=== PATIENT | female | born 1970 | race Caucasian/White ===

== ENCOUNTER 2024-10-08 06:18 | Day surgery (SDC) | payer BC ==
[2024-10-08 06:54] LABS: BASOPHILS ABSOLUTE AUTO 0.06 K/uL (0.00-0.10); BASOPHILS PERCENT AUTO 1.1 % (0.1-1.3); EOSINOPHILS PERCENT AUTO 3.8 % (0.0-5.4); HEMATOCRIT 38.1 % (34.3-46.0); HEMOGLOBIN 12.7 g/dL (11.2-15.5); IMMATURE GRAN PERCENT AUTO 0.4 % (0.0-0.7); LYMPHOCYTES ABSOLUTE AUTO 1.88 K/uL (0.8-3.3); LYMPHOCYTES PERCENT AUTO 35.5 % (11.4-47.7); MEAN CORPUSCULAR HEMOGLOBIN 30.5 pg (31.6-35.5); MEAN CORPUSCULAR HGB CONC 33.3 g/dL (31.6-35.5); MEAN CORPUSCULAR VOLUME 91.6 fL (81.4-99.0); MONOCYTES ABSOLUTE AUTO 0.45 K/uL (0.20-0.90); MONOCYTES PERCENT AUTO 8.5 % (3.3-12.6); NEUTROPHILS ABSOLUTE AUTO 2.69 K/uL (1.0-7.6); NEUTROPHILS PERCENT AUTO 50.7 % (40.0-78.1); PLATELET COUNT,PLT 256 K/uL (130-375); RED BLOOD CELL COUNT 4.16 M/uL (3.77-5.24); WHITE BLOOD CELL COUNT,WBC 5.3 K/uL (3.2-11.0)
[2024-10-08 06:55] LABS: IMMATURE GRAN ABSOLUTE AUTO 0.02 K/uL (0.00-0.23)
[2024-10-08] MEDS ORDERED: Bupivacaine 0.5% 50 ML MDV ONE (06:56)
[2024-10-08] MEDS ORDERED: ceFAZolin 2 GM in Premix Bag 1 BAG IV ONE (07:00)
[2024-10-08] MEDS ORDERED: Clindamycin in 0.9 % Sod Chlor 900 MG in Premix Bag 1 BAG IV ONE (07:00)
[2024-10-08] MEDS: Lactated Ringers 1,000 ML IV SCH (07:05)
[2024-10-08 07:09] LABS: ANION GAP 8.4 mmol/L (5.0-14.0); CREATININE 0.6 mg/dL (0.6-1.0); EST CRCL DRUG DOSING (CG) 96.45 mL/min; POTASSIUM,K 3.9 mmol/L (3.6-5.2)
[2024-10-08] MEDS ORDERED: fentaNYL 100 MCG/2 ML SDV ONE (07:28)
[2024-10-08] MEDS ORDERED: Midazolam 1 MG/ML 2 ML SDV ONE (07:28)
[2024-10-08] MEDS ORDERED: Propofol 200 MG/20 ML SDV ONE (07:28)
[2024-10-08] MEDS: Nozin Nasal Sanitizer NASBOTH ONE (07:31)
[2024-10-08] MEDS ORDERED: Bupivacaine 0.5% 30 ML SDV ONE (07:31)
[2024-10-08] MEDS: Clindamycin in 0.9 % Sod Chlor 900 MG in Premix Bag 1 BAG IV ONE (07:43)
== END 2024-10-08 10:28 | disposition home or self-care (01) ==
LOC: JP.SDS 06:18
PROVIDERS: ATTEND Specialist
DX: M75.101 Unspecified rotator cuff tear or rupture of right shoulder, not specified as traumatic (principal); M12.511 Traumatic arthropathy, right shoulder; S46.211A Strain of muscle, fascia and tendon of other parts of biceps, right arm, initial encounter; J45.909 Unspecified asthma, uncomplicated; Z79.899 Other long term (current) drug therapy; X58.XXXA Exposure to other specified factors, initial encounter
CPT/HCPCS: 01630; 36415; 80048; 85025; A9270; C1713; J0665; J0737; J2250; J2704; J3010; J7120

== ENCOUNTER 2024-12-08 07:15 | Day surgery (SDC) | payer BC ==
[2024-12-08] MEDS ORDERED: Propofol 200 MG/20 ML SDV ONE (07:34)
[2024-12-08] MEDS ORDERED: fentaNYL 50 MCG/ML SDV ONE (07:34)
[2024-12-08] MEDS ORDERED: Midazolam 1 MG/ML 2 ML SDV ONE (07:34)
[2024-12-08] MEDS: Lactated Ringers 1,000 ML IV SCH (08:07)
== END 2024-12-08 10:12 | disposition home or self-care (01) ==
LOC: JP.SDS 07:15
PROVIDERS: ATTEND Surgery
DX: Z12.11 Encounter for screening for malignant neoplasm of colon (principal); J45.909 Unspecified asthma, uncomplicated; Z88.8 Allergy status to other drugs, medicaments and biological substances; Z79.899 Other long term (current) drug therapy
CPT/HCPCS: 00812; 45378; J2250; J2704; J3010; J7120